=== PATIENT | male | born 1995 | race Caucasian/White ===

== ENCOUNTER 2017-09-25 20:34 | Emergency (ER) | payer OTHER ==
[~2017-09-25] VITALS: Ht 188 cm; Wt 140.0 kg
[2017-09-25 20:40] VITALS: BP 144/92
[2017-09-25] MEDS ORDERED: DIPHENHYDRAMINE 50 MG/ML, 1ML ONE (20:54)
[2017-09-25] MEDS ORDERED: PROCHLORPERAZINE 5 MG/ML, 2ML ONE (20:54)
[2017-09-25] MEDS ORDERED: PROCHLORPERAZINE 5 MG/ML, 2ML IVPush ONE (21:00)
[2017-09-25] MEDS ORDERED: SODIUM CHLORIDE 0.9% 1,000ML IVBOLUS ONE (21:00)
[2017-09-25] MEDS ORDERED: DIPHENHYDRAMINE 50 MG/ML, 1ML IVPush ONE (21:00)
[2017-09-25] MEDS ORDERED: KETOROLAC 30 MG/1 ML ONE (21:43)
[2017-09-25] MEDS ORDERED: KETOROLAC 30 MG/1 ML IVPush ONE (22:00)
== END 2017-09-25 22:32 | disposition home or self-care (01) ==
LOC: ED 21:40
DX: R51 Headache (principal); H53.8 Other visual disturbances; H53.142 Visual discomfort, left eye; I10 Essential (primary) hypertension
CPT/HCPCS: 70450; 96374; 96375; 99284; J0780; J1200; J1885

== ENCOUNTER 2018-09-08 23:03 | Emergency (ER) | payer OTHER ==
[~2018-09-08] VITALS: Ht 188 cm; Wt 156.4 kg
[2018-09-08] MEDS ORDERED: IBUPROFEN 800 MG (23:09)
[2018-09-08] MEDS ORDERED: PARO20TA98 PO (23:09)
--- NOTE | 2018-09-08 23:18 | NUR ---
PT PRESENTED WITH C/O BROGHT RED BLOOD IN STOOL X 2 EPISODES TODAY, LAST BM 2199. PT ALSO C/O RECTAL AND LOWER ABD PAIN. PROVIDED PT WITH GOWN, SIDERAILS UP X2, FAMILY AT BEDSIDE, CALL LIGHT WITHIN REACH. AWAITING ERP FOR EVAL AND ORDERS
[2018-09-08 23:59] LABS: BASOPHILS # (AUTO) 0.11 x10^3/uL (0-0.1); BASOPHILS % (AUTO) 1 % (0-1); EOSINOPHILS # (AUTO) 0.54 x10^3/uL (0-0.4); EOSINOPHILS % (AUTO) 5 % (1-7); LYMPHOCYTES % (AUTO) 25 % (22-44); MD NO; MEAN CORPUSCULAR HEMOGLOBIN 30.6 pg (27.5-34.5); MEAN CORPUSCULAR HGB CONC 33.9 g/dL (33.2-36.2); MEAN CORPUSCULAR VOLUME 90.4 fL (81-97); MEAN PLATELET VOLUME 7.4 fL (7.4-10.4); MONOCYTES # (AUTO) 1.11 x10^3/uL (0.2-0.8); MONOCYTES % (AUTO) 10 % (2-9); NEUTROPHILS % (AUTO) 59 % (42-75); PLATELET COUNT 351 x10^3/uL (130-400); RED BLOOD COUNT 4.91 x10^6/uL (4.38-5.82); RED CELL DISTRIBUTION WIDTH 13.7 % (9.4-14.8)
[2018-09-09 00:12] LABS: ALANINE AMINOTRANSFERASE 34 U/L (12-78); ALBUMIN 3.4 g/dL (3.4-5.0); ANION GAP 6 mmol/L (5-15); CALCIUM 8.7 mg/dL (8.5-10.1); CHLORIDE 111 mmol/L (98-107); CREATININE 0.97 mg/dL (0.7-1.3)
[2018-09-09 00:14] LABS: ALKALINE PHOSPHATASE 71 U/L (45-117); BILIRUBIN,TOTAL 0.2 mg/dL (0.2-1.0); TOTAL PROTEIN 6.8 g/dL (6.4-8.2)
[2018-09-09 00:29] VITALS: BP 132/63
== END 2018-09-09 00:57 | disposition home or self-care (01) ==
LOC: ED 09-09 00:09
DX: K92.2 Gastrointestinal hemorrhage, unspecified (principal); K92.1 Melena
CPT/HCPCS: 36415; 80053; 83690; 85025; 99283

== ENCOUNTER 2019-07-02 17:53 | Emergency (ER) | payer OTHER ==
[~2019-07-02] VITALS: Ht 188 cm; Wt 148.0 kg
[~2019-07-02 17:53] MED LIST: IBUPROFEN 800 MG; PARO20TA98 PO
[2019-07-02 17:56] VITALS: BP 133/89
[2019-07-02] MEDS ORDERED: ASPIRIN 81 MG TABLET CHEW PO ONE (18:30)
[2019-07-02] MEDS ORDERED: ASPIRIN 81 MG TABLET CHEW ONE (18:34)
[2019-07-02 18:39] LABS: BASOPHILS # (AUTO) 0.02 x10^3/uL (0-0.1); BASOPHILS % (AUTO) 0 % (0-1); EOSINOPHILS # (AUTO) 0.47 x10^3/uL (0-0.4); EOSINOPHILS % (AUTO) 5 % (1-7); LYMPHOCYTES # (AUTO) 2.49 x10^3/uL (1-3.4); LYMPHOCYTES % (AUTO) 25 % (22-44); MD NO; MEAN CORPUSCULAR HGB CONC 33.8 g/dL (33.2-36.2); MEAN CORPUSCULAR VOLUME 88.7 fL (81-97); MEAN PLATELET VOLUME 8.1 fL (7.4-10.4); MONOCYTES # (AUTO) 0.89 x10^3/uL (0.2-0.8); MONOCYTES % (AUTO) 9 % (2-9); NEUTROPHILS # (AUTO) 6.14 x10^3/uL (1.8-6.8); NEUTROPHILS % (AUTO) 61 % (42-75); PLATELET COUNT 340 x10^3/uL (130-400); RED BLOOD COUNT 5.14 x10^6/uL (4.38-5.82); RED CELL DISTRIBUTION WIDTH 14.7 % (9.4-14.8)
--- NOTE | 2019-07-02 18:50 | NUR ---
MEDICATED PER EMAR UPDATED ON ESTIMATED POC VSS ON [employer]
[2019-07-02 18:51] LABS: ALANINE AMINOTRANSFERASE 31 U/L (12-78); ALBUMIN 3.6 g/dL (3.4-5.0); ANION GAP 7 mmol/L (5-15); CALCIUM 9.1 mg/dL (8.5-10.1); CHLORIDE 110 mmol/L (98-107); CREATININE 1.01 mg/dL (0.7-1.3)
[2019-07-02 18:55] LABS: ALKALINE PHOSPHATASE 72 U/L (45-117); BILIRUBIN,TOTAL 0.4 mg/dL (0.2-1.0); TOTAL PROTEIN 7.3 g/dL (6.4-8.2); TROPONIN I < 0.015 ng/mL (0.000-0.045)
--- NOTE | 2019-07-02 19:08 | NUR ---
REPORT TO KATHERINE WHEAT
--- NOTE | 2019-07-02 19:54 | NUR ---
REPORT FROM JARRET FREITAS
== END 2019-07-02 20:05 | disposition home or self-care (01) ==
LOC: ED 19:45
DX: R07.89 Other chest pain (principal); I10 Essential (primary) hypertension; F41.1 Generalized anxiety disorder
CPT/HCPCS: 36415; 71045; 80053; 84484; 85025; 85379; 93005; 99284

== ENCOUNTER 2021-01-02 18:54 | Emergency (ER) | payer OTHER ==
[~2021-01-02] VITALS: Ht 188 cm; Wt 154.7 kg
--- NOTE | 2021-01-02 19:07 | NUR ---
PA AT BEDSIDE FOR EVAL
[2021-01-02] MEDS ORDERED: SODIUM CHLORIDE FLUSH 10ML SYR IVF ONE (19:30)
[2021-01-02] MEDS ORDERED: SODIUM CHLORIDE 0.9% 1,000ML IVBOLUS ONE (19:30)
[2021-01-02] MEDS ORDERED: ONDANSETRON 2MG/ML, 2ML ONE (19:32)
[2021-01-02 19:50] LABS: BASOPHILS % (AUTO) 1 % (0-1); EOSINOPHILS % (AUTO) 2 % (1-7); LYMPHOCYTES % (AUTO) 22 % (22-44); MEAN CORPUSCULAR HEMOGLOBIN 29.7 pg (27.5-34.5); MEAN CORPUSCULAR HGB CONC 34.2 g/dL (33.2-36.2); MEAN PLATELET VOLUME 7.5 fL (7.4-10.4); MONOCYTES % (AUTO) 8 % (2-9); NEUTROPHILS % (AUTO) 67 % (42-75); PLATELET COUNT 392 x10^3/uL (130-400); RED BLOOD COUNT 5.22 x10^6/uL (4.38-5.82); RED CELL DISTRIBUTION WIDTH 14.6 % (9.4-14.8)
[2021-01-02 19:53] LABS: MD NO
[2021-01-02] MEDS ORDERED: ONDANSETRON 2MG/ML, 2ML IVPush ONE (20:00)
[2021-01-02 20:01] LABS: ALANINE AMINOTRANSFERASE 33 U/L (12-78); ALBUMIN 3.8 g/dL (3.4-5.0); ANION GAP 8 mmol/L (5-15); CALCIUM 10.2 mg/dL (8.5-10.1); CHLORIDE 106 mmol/L (98-107)
[2021-01-02 20:04] LABS: ALKALINE PHOSPHATASE 67 U/L (45-117); BILIRUBIN,TOTAL 0.7 mg/dL (0.2-1.0); TOTAL PROTEIN 7.7 g/dL (6.4-8.2)
[2021-01-02 20:18] VITALS: BP 132/78
== END 2021-01-02 21:06 | disposition home or self-care (01) ==
LOC: ED 19:24
DX: K59.00 Constipation, unspecified (principal); R10.84 Generalized abdominal pain; R11.2 Nausea with vomiting, unspecified
CPT/HCPCS: 36415; 74021; 80053; 83690; 85025; 96361; 96374; 99284; J2405; J7030